=== PATIENT | female | born 1970 | race Caucasian/White ===

== ENCOUNTER 2024-02-02 09:44 | Outpatient (CLI) | payer OTHER, SELFPAY ==
--- OUTSIDE RECORDS SUMMARY | 2024-02-02 09:47 | XMS_ITS | Clinical Summary ---
Author Name Unknown Organization [facility] Address [address] [place] [id number] Care Team Providers Care Locomotive Firer/Fireman Name Role Phone Meño Solis MD Primary Care Provider [phone] Allergies Active Allergy Reactions Criticality Noted Date Comments Naproxen Hives 12/03/2019 Medications Medication Sig Dispensed Refills Start Date End Date Status lisinopril (ZESTRIL) 40 MG tablet Take 40 mg by mouth daily Active DULoxetine (CYMBALTA) 60 MG capsule Take 60 mg by mouth daily Active citalopram (CELEXA) 40 MG tablet Take 40 mg by mouth daily Active multivitamin w/minerals (MULTI-VITAMIN) tablet Take 1 tablet by mouth daily Active potassium bicarb & chloride 25 MEQ TBEF Acti ve furosemide (LASIX) 40 MG tablet Take 40 mg by mouth 2 times daily Active magnesium 250 MG tablet Take 1 tablet by mouth daily Active cyanocobalamin (VITAMIN B-12) 100 MCG tablet Take 100 mcg by mouth daily Active flurbiprofen (ANSAID) 100 MG tablet Take 100 mg by mouth 3 times daily Active diphenhydrAMINE (BENADRYL) 25 MG capsule Take 25 mg by mouth every 6 hours as needed for itching, allergies or sleep Active aspirin (ASA) 81 MG chewable tablet Take 81 mg by mouth daily Active phentermine (ADIPEX-P) 15 MG capsule Take by mouth every morning Active traMADol (ULTRAM) 50 MG tablet Take 50 mg by mouth every 6 hours as needed for severe pain Active Active Problems Problem Noted Date Diagnosed Date Encounter for post Essure sterilization check Morbid obesity 12/03/2019 Benign-appearing endometrial cells on cervical P ap smear 12/03/2019 Overview: 12/03/19 NIL pap, neg HPV. Endometrial cells present consistent with LMP. Per provider, cotest in 3 years. Social History Tobacco Use Types Packs/Day Years Used Date Smoking Tobacco: Never Smokeless Tobacco: Never Tobacco Cessation:Counseling Given: No Alcohol Use Standard Drinks/Week Comments Never 0 (1 standard drink = 0.6 oz pur e alcohol) AUDIT-C Answer Date Recorded Q1: How often do you have a drink containing alc ohol? Never 12/03/2019 Average Number of Drinks Not on file 020 Frequency of Binge Drinking Not on file 11/07 Sex and Gender Information Value Date Recorded Sex Assigned at Not on file Gender Identity Not on file Sexual Orientation Not on file Last Filed Vital Signs Vital Sign Reading Time Taken Comments Blood Pressure 124/68 12/17/2019 11:19 AM CDT Pulse - - Temperature - - Respiratory Rate - - Oxygen Saturation - - Inhaled Oxygen Concentration - - Weight 161.5 kg (356 lb) 12/17/2019 11:19 AM CDT Height 175.3 cm (5' 9) 12/17/2019 11:19 AM CDT Body Mass Index 52.57 12/17/2019 11:19 AM CDT Plan of Treatment Not on file Care Teams Locomotive Firer/Fireman Relationship Specialty Start Date End Date Meño Solis MD PCP - General pest control chemical technician 12/03/19
--- OUTSIDE RECORDS SUMMARY | 2024-02-02 09:47 | XMS_ITS | Referral Summary ---
Author Name Unknown Organization [facility] Address [address] [place] [id number] Care Team Providers Care Miniature Train Driver Name Role Phone Meño Solis MD Primary Care Provider [phone] Allergies Active Allergy Reactions Criticality Noted Date [...] of Treatment Not on file Care Teams Miniature Train Driver Relationship Specialty Start Date End Date Meño Solis MD PCP - General double ending machine operator 12/03/19
--- OUTSIDE RECORDS SUMMARY | 2024-02-02 09:47 | XMS_ITS | Clinical Summary ---
Author Name Unknown Organization [facility] Address [place], [place] [address] Care Team Providers Care Oracle Reports Developer Name Role Phone Kulwant Erazo MD Primary Care Provider + Allergies Active Allergy Reactions Criticality Noted Date Comments Naproxen Hives 07/02/2007 Medications Medication Sig Dispensed Refills Start Date End Date Status multivitamin (MVI) tablet Take 1 tablet by mouth once daily. 0 11/13/2011 Active diphenhydrAMINE (BENADRYL) 25 mg capsuleIndications: Fibromyalgia Take 1-2 capsules by mouth at bedtime if needed. 0 01/02/2016 Active acetaminophen-caffe ine-butalbital (FIORICET) 325-40-50 mg tabletIndications:M igraine with aura and without status migrainosus, not intractable TAKE ONE TABLET BY MOUTH EVERY 4 HOURS NEEDED FOR PAIN, MAX 6 DOSES PER DAY. DO NOT EXCEED 4000MG ACETAMINOPHEN/DAY 40 tablet 1 12/15/2016 Active Cholecalciferol, Vitamin D3, (VITAMIN D-3) 2,000 unit tabletIndications:R outine general medical examination at a health care facility Take 1 tablet by mouth once daily. 0 07/22/2017 Active cyanocobalamin, vitamin B-12, 500 mcg sublIndications:Rou meron general medical examination at a health care facility Place under the tongue. 0 07/22/2017 Active cetirizine (ZYRTEC) 10 mg tabletIndications:O talgia of right ear,Eustachian tube disorder, right Take 1 tablet by mouth once daily. 20 tablet 04/02/2018 Active melatonin 1 mgIndications:Essen tial hypertension Take 1 tablet by mouth at bedtime. 0 04/24/2018 Active CONTRAVE 8-90 mg Extended-Release tabletIndications:E xogenous obesity TAKE ONE TABLET BY MOUTH TWICE A DAY 60 tablet 06/09/2018 Active DULoxetine (CYMBALTA) 60 mg Delayed-release capsuleIndications: Fibromyalgia TAKE ONE CAPSULE BY MOUTH ONCE DAILY 90 capsule 2 06/08/2018 Active potassium chloride (KLOR-CON M20) 20 mEq Extended-Release tabletIndications:H ypertension TAKE ONE TABLET BY MOUTH TWO TIMES A DAY WITH MEALS 180 tablet 3 06/10/2018 Active citalopram (CELEXA) 40 mg tabletIndications:A nxiety state TAKE ONE TABLET BY MOUTH ONCE DAILY 90 tablet 08/31/2018 Active lisinopril (PRINIVIL; ZESTRIL) 40 mg tabletIndications:H ypertension TAKE ONE TABLET BY MOUTH TWO TIMES A DAY 180 tablet 11/04/2018 Active metoprolol succinate SR (TOPROL XL) 200 mg Sustained-Release tabletIndications:H ypertension TAKE ONE TABLET BY MOUTH ONCE DAILY 90 tablet 11/04/2018 Active amLODIPine (NORVASC) 5 mg tabletIndications:E ssential hypertension Take 1 tablet by mouth once daily. 90 tablet 11/16/2018 Active furosemide (LASIX) 40 mg tabletIndications:H ypertension, unspecified type Take 1 tablet by mouth 2 times daily. 180 tablet 12/06/2018 Active flurbiprofen (ANSAID) 100 mg tabletIndications:F ibromyalgia Take 1 tablet by mouth 3 times daily with meals. 90 tablet 12/06/2018 Active oxyCODONE-acetamino phen (PERCOCET) 5-325 mg per tabletIndications:C ervical radiculopathy Take 1 Tablet by mouth every 4 hours if needed for Pain. Max acetaminophen dose: 4000mg in 24 hrs. 12 Tablet 06/05/2021 Active Active Problems Problem Noted Date Diagnosed Date Vitamin D deficiency 12/02/2011 ALLERGIC RHINITIS 07/05/2007 Neurodermatitis 07/05/2007 Anxiety state, unspecified 07/05/2007 Plantar fascial fibromatosis 07/05/2007 Obesity, unspecified 07/05/2007 Resolved Problems Problem Noted Date Diagnosed Date Resolved Date Unspecified essential hypertension 07/05/2007 02/19/2017 Immunizations Name Administration Dates Next Due DTP 02/03/1973,01/09/1972,1971 ,1971 Hepatitis B (Adult) 04/30/2010,06/01/2009,2008 Influenza, IIV3 (Age >=3 years) 11/13/2011,08/06 Influenza, IIV4 07/08/2014 MMR 06/05/1990,10/28/1972 Oral Polio Vaccine 02/03/1973,01/09/1972, 972 Td (Age >=7 Years) 06/05/1990 Tdap 04/04/2021,07/02/2007 Family History Medical History Relation Name Comments Heart Disease Father [place] at age 52 Cancer-breast Maternal Aunt Good Health Mother Cancer-breast Paternal Grandmother Diabetes Paternal Grandmother Hypertension Paternal Grandmother [facility] Son 1 [facility] Son 2 [facility] Relation Name Status Comments Father Maternal Aunt Mother Alive Paternal Grandmother Son 1 Asad Son 2 [facility] Social History Tobacco Use Types Packs/Day Years Used Date Smoking Tobacco: Never Smokeless Tobacco: Never Tobacco Cessation:Counseling Given: Yes Alcohol Use Standard Drinks/Week Comments No 0 (1 standard drink = 0.6 oz pur e alcohol) rarely Sex and Gender Information Value Date Recorded Sex Assigned at Not on file Gender Identity Not on file Sexual Orientation Not on file Obstetrics History Para Term AB IAB SAB Ectopic Multiple Livin g Live Births 2 2 2 2 2 Date Outcome GA Total Labor Labor/2nd/3rd Weight Sex Delivery Anes PTL Anne Marie A1 A5 Name Cl in 10/06 34w 0d 2.15 kg (4 lb 12 oz) M Vag Dia ng Elija h [place] Delivery Location:[place] Comments:PROM 11/08 36w 0d 3.57 kg (7 lb 14 oz) M Dia ng 9 9 Israe l Howel l/[place] Delivery Location:[facility] Comments:[place] Last Filed Vital Signs Vital Sign Reading Time Taken Comments Blood Pressure 202/96 06/05/2021 1:56 PM CDT Pulse 79 06/05/2021 1:56 PM CDT Temperature 36.8 ??C (98.2 ??F) 06/05/2021 1:56 PM CD T Respiratory Rate 18 06/05/2021 1:56 PM CDT Oxygen Saturation 96% 06/05/2021 1:56 PM CDT Inhaled Oxygen Concentration - - Weight 146.5 kg (323 lb) 06/05/2021 1:56 PM CDT Height 175.3 cm (5' 9) 06/05/2021 1:56 PM CDT Body Mass Index 47.7 06/05/2021 1:56 PM CDT Plan of Treatment Health Maintenance Due Date Last Done Comments HIV for age 15-65 1986 Hepatitis C screening for age 18-79 1989 Colonoscopy through age 75 2016 Mammogram for age 45-75 2016 07/10/2007 Pap test for age 21-65 02/02/2017 4, 06/16/2008, 07/02/2007, Additional history exists Depression screening for age 12+ 07/22/2018 07/22/2017, 03/14/2016, 10/13/2015 BMI (ht and wt on same day) for age 18+ 04/24/2019 04/24/2018, 04/02/2018, 07/22/2017, Additional history exists Zoster (shingles) series for age 50+ (1 of 2) 2021 Lipids for age 45-75 04/24/2023 04/24/2018, 02/19/2017, 02/02/2014, Additional history exists COVID-19 vaccine series (2022- season) 2023 11/15/2020, 10/18/2020 Influenza for age 50-64 06/06/2024 07/08/20 14, 11/13/2011, 08/06/2010 Tetanus booster 04/04/2031 04/04/2021, 06/07, 06/05/1990 Tdap Completed 04/04/2021, 07/02/2007 Pneumococcal series for age 6-64 Aged Out No longer eligible based on patient's age to complete this topic Goals Goal Patient Goal Type Associated Problems Recent Progress Patient-Stated? Author BLOOD PRESSURE - MAINTAINS BP less than 140/90 Blood Pressure No Kulwant Erazo MD Medical Devices Implanted Type Area Roustabout Hand Device Identifier Shelf Expiration Date Model / Serial / Lot [id number] - [id number] Implanted:Qty: 1 on 10/31/2014 by Patel Gómez MD at [facility] [employer] Imp[employer]Scre[employer] [id number] T / / Description:4.5x 60mm screw metatarsal fracture screw Procedures Procedure Name Priority Date/Time Associated Diagnosis Comments LIPID PANEL W REFLEX MEASURED LDL Routine 04/24/2018 3:51 PM CDT Essential hypertension BOX LINER THIN PREP PAP SCREEN IMAGED Routine 02/02/2014 9:59 AM CDT Screening for malignant neoplasm of the cervix XR MAMMO ACS SCREENING BILATERAL (IA) Routine 07/10/2007 Screening Mammogram Other from Last 3 Months or Most Recently Relevant to Health Maintenance Results * (ABNORMAL) LIPID PANEL W REFLEX MEASURED LDL (04/24/2018 3:51 PM CDT) CHOLESTEROL,TOTAL 172 100 - 199 mg/dL 04/24/2018 4:30 PM CDT [facility] TRIGLYCERIDES 360(H) <150 mg/dL 04/24/2018 4:30 PM CDT [facility] HDL CHOLESTEROL 35(L) >40 mg/dL 8 4:30 PM CDT [facility] NON-HDL CHOLESTEROL 137 <145 mg/dl 04/24/2018 4:30 PM CDT [facility] CHOL/HDL RATIO 4.91(H) <4.50 04/24/2018 4:30 PM CDT [facility] LDL CHOLESTEROL 65 <=130 mg/dL 04/24/2018 4:30 PM CDT [facility] PROVIDER ORDERED STATUS RANDOM 04/24/2018 4:30 PM CDT [facility] Blood BLOOD SPECIMEN / Unknown Venipuncture / Unknown 04/24/2018 3:51 PM CDT 04/24/2018 3:51 PM CDT Kulwant Erazo MD CHEMISTRY Performing Organization Address [facility]/ZIP Co de Phone Number [facility] - [address] [place] [address] * BOX LINER THIN PREP PAP SCREEN IMAGED (02/02/2014 9:59 AM CDT) CYTOLOGY CYTOPATHOLOGY REPORT [facility] Status: Final Status ? CLINICAL INFORMATION Last Date of LMP ? :01/18/14 Last Pap Date ?:06/16/2008 Last Pap Result ?:NIL ABN Parthenon/Bx Past 5 YRS :None Hormone Usage ?:None Menstrual Status ? :Regular Periods Parthenon/Bx done today ? :No Additional Information :None given HPV Request ?:HPV if ASCUS SPECIMEN SOURCE ?:Cervical/vagina l ThinPrep Vial, screening SPECIMEN ADEQUACY ?:Satisfactory for evaluation Endocervical component ? present. INTERPRETATION/RES ULT Negative for intraepithelial lesion or malignancy (NIL) Cytology 1st Screener ??:gn Signed by ?:gn This specimen was screened by the FDA approved ThinPrep Imaging System and manually reviewed. NOTE: ??The Pap test is a screening technique, not a diagnostic procedure. ??It is used ??primarily to screen for squamous cancers and precursor lesions. ??Published studies have shown that it is subject to both false negative and false positive results. ??The pap test should not be used as the sole means to diagnose or exclude pre-malignant and malignant lesions. COLLECTED:02/02/14 ? ACCESSIONED: ??02/03/14 ?? SIGNED: ??02/04/14 [facility] PAP [place] CODE NIL [facility] Tissue specimen (specimen) (Cervical/Vagina l) 02/02/2014 9:59 AM CDT 02/02/2014 9:57 AM CDT Kulwant Erazo MD PATHOLOGY/CYTOLO GY [facility] INTERNAL ZIP [id number] [place] [id number] * (ABNORMAL) XR MAMMO ACS SCREENING BILATERAL (07/10/2007) Anatomical Region Laterality Modality BREASTS, Breast Left, Breast Right Bilateral Other Kulwant Erazo MD MAMMO from Last 3 Months or Most Recently Relevant to Health Maintenance Advance Directives * Full Code (Latest Code Status on File) Date Activated Date Inactivated Comments 10/31/2014 10:48 AM 10/31/2014 2:54 PM * Full Code Date Activated Date Inactivated Comments 10/31/2014 7:20 AM 10/31/2014 10:48 AM Care Teams Oracle Reports Developer Relationship Specialty Start Date End Date Kulwant Erazo MD [address] [place] [address] PCP - General Family Practice 06/05/21
== END 2024-02-02 09:45 | disposition home or self-care (01) ==
PROVIDERS: PCP Family Medicine; Visit Provider Family Medicine
DX: Z13.220 Encounter for screening for lipoid disorders (principal); I10 Essential (primary) hypertension
CPT/HCPCS: 80048; 80061

== ENCOUNTER 2025-04-15 08:37 | Outpatient (CLI) | payer OTHER, SELFPAY | END 2025-04-15 08:38 | disposition home or self-care (01) | PROVIDERS: PCP Family Medicine; Visit Provider Family Medicine | DX: I10 Essential (primary) hypertension (principal) | CPT/HCPCS: 80048; 80061; 84460 ==

== ENCOUNTER 2025-05-09 16:45 | Outpatient (CLI) | payer OTHER, SELFPAY | END 2025-05-09 16:46 | disposition home or self-care (01) | PROVIDERS: PCP Family Medicine; Visit Provider Family Medicine | DX: R53.1 Weakness (principal) | CPT/HCPCS: 80048; 82550; 83735; 84443; 85025; 85651; 86140 ==

== ENCOUNTER 2025-05-10 09:10 | Emergency (ER) | payer OTHER, SELFPAY ==
--- OUTSIDE RECORDS SUMMARY | 2025-05-10 09:12 | XMS_ITS | Clinical Summary ---
Author Organization [facility] Address [address] [place] [id number] Care Team Providers Care Distribution Systems Serviceperson Name Role Phone Kulwant Erazo MD Primary Care Provider + Allergies Active Allergy Reactions Criticality Noted Date Comments Naproxen Hives 07/02/2007 Medications multivitamin (MVI) tablet Take 1 tablet by mouth once daily. 0 11/13/19 12 Active diphenhydrAMINE (BENADRYL) 25 mg capsuleIndication s:Fibromyalgia Take 1-2 capsules by mouth at bedtime if needed. 0 01/02/20 16 Active acetaminophen-caf feine-butalbital (FIORICET) 325-40-50 mg tabletIndications :Migraine with aura and without status migrainosus, not intractable TAKE ONE TABLET BY MOUTH EVERY 4 HOURS NEEDED FOR PAIN, MAX 6 DOSES PER DAY. DO NOT EXCEED 4000MG ACETAMINOPHEN/DAY 40 tablet 1 12/16/19 17 Active Cholecalciferol, Vitamin D3, (VITAMIN D-3) 2,000 unit tabletIndications :Routine general medical examination at a health care facility Take 1 tablet by mouth once daily. 0 07/22/20 17 Active cyanocobalamin, vitamin B-12, 500 mcg sublIndications:R outine general medical examination at a health care facility Place under the tongue. 0 07/22/20 17 Active cetirizine (ZYRTEC) 10 mg tabletIndications :Otalgia of right ear,Eustachian tube disorder, right Take 1 tablet by mouth once daily. 20 tablet 04/02/20 18 Active melatonin 1 mgIndications:Ess ential hypertension Take 1 tablet by mouth at bedtime. 0 04/24/20 18 Active CONTRAVE 8-90 mg Extended-Release tabletIndications :Exogenous obesity TAKE ONE TABLET BY MOUTH TWICE A DAY 60 tablet 06/09/20 18 Active DULoxetine (CYMBALTA) 60 mg Delayed-release capsuleIndication s:Fibromyalgia TAKE ONE CAPSULE BY MOUTH ONCE DAILY 90 capsule 2 06/08/20 18 Active potassium chloride (KLOR-CON M20) 20 mEq Extended-Release tabletIndications :Hypertension TAKE ONE TABLET BY MOUTH TWO TIMES A DAY WITH MEALS 180 tablet 3 06/10/20 18 Active citalopram (CELEXA) 40 mg tabletIndications :Anxiety state TAKE ONE TABLET BY MOUTH ONCE DAILY 90 tablet 08/31/20 18 Active lisinopril (PRINIVIL; ZESTRIL) 40 mg tabletIndications :Hypertension TAKE ONE TABLET BY MOUTH TWO TIMES A DAY 180 tablet 11/04/19 19 Active metoprolol succinate SR (TOPROL XL) 200 mg Sustained-Release tabletIndications :Hypertension TAKE ONE TABLET BY MOUTH ONCE DAILY 90 tablet 11/04/19 19 Active amLODIPine (NORVASC) 5 mg tabletIndications :Essential hypertension Take 1 tablet by mouth once daily. 90 tablet 11/16/19 19 Active furosemide (LASIX) 40 mg tabletIndications :Hypertension, unspecified type Take 1 tablet by mouth 2 times daily. 180 tablet 12/07/19 19 Active flurbiprofen (ANSAID) 100 mg tabletIndications :Fibromyalgia Take 1 tablet by mouth 3 times daily with meals. 90 tablet 12/07/19 19 Active oxyCODONE-acetami nophen (PERCOCET) 5-325 mg per tabletIndications :Cervical radiculopathy Take 1 Tablet by mouth every 4 hours if needed for Pain. Max acetaminophen dose: 4000mg in 24 hrs. 12 Tablet 06/05/20 21 Active Active Problems Problem Noted Date Diagnosed Date Vitamin D deficiency 12/02/2011 ALLERGIC RHINITIS 07/05/2007 Neurodermatitis 07/05/2007 Anxiety state, unspecified 07/05/2007 Plantar fascial fibromatosis 07/05/2007 Obesity, unspecified 07/05/2007 Resolved Problems Problem Noted Date Diagnosed Date Resolved Date Unspecified essential hypertension 07/05/2007 02/19/2017 Immunizations Immunization Administration Dates Next Due DTP 02/03/1973,01/09/1972,1971 ,1971 Hepatitis B (Adult) 04/30/2010,06/01/2009,2008 Influenza, IIV3 (Age >=3 years) 11/13/2011,08/06 Influenza, IIV4 07/08/2014 MMR 06/05/1990,10/28/1972 Oral Polio Vaccine 02/03/1973,01/09/1972, 972 Td (Age >=7 Years) 06/05/1990 Tdap 04/04/2021,07/02/2007 Family History Medical History Relation Name Comments Heart Disease Father [place] at age 52 Cancer-breast Maternal Aunt Good Health Mother Cancer-breast Paternal Grandmother Diabetes Paternal Grandmother Hypertension Paternal Grandmother Good Health Son 1 Asda [facility] Son 2 [facility] Relation Name Status Comments Father Maternal Aunt Mother Alive Paternal Grandmother Son 1 Asad Son 2 [facility] Social History Tobacco Use Types Packs/Day Years Used Date Smoking Tobacco: Never Smokeless Tobacco: Never Tobacco Cessation:Counseling Given: Yes Alcohol Use Standard Drinks/Week Comments No 0 (1 standard drink = 0.6 oz pur e alcohol) rarely Comments No Sex and Gender Information Value Date Recorded Sex Assigned at Not on file Legal Sex Female 6:59 AM SILVERWARE ASSEMBLER Gender Identity Not on file Sexual Orientation Not on file 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 Comments:[place] Last Filed Vital Signs Vital Sign Reading Time Taken Comments Blood Pressure 202/96 06/05/2021 1:56 PM CDT Pulse 79 06/05/2021 1:56 PM CDT Temperature 36.8 C (98.2 F) 06/05/2021 1:56 PM CDT Respiratory Rate 18 06/05/2021 1:56 PM CDT [...] age 15-65 1986 Hepatitis C screening for ag e 18-79 1989 Colonoscopy through age 75 2016 Mammogram for age 45-75 2016 07/10/2007 Pap test for age 21-65 02/02/2017 4, 06/16/2008, 07/02/2007, Additional history exists Depression screening for age 12+ 07/22/2018 07/22/2017, 03/14/2016, 10/13/2015 BMI (ht and wt on same day) for age 18+ 04/24/2019 04/24/2018, 04/02/2018, 07/22/2017, Additional history exists Pneumococcal series for age 50+ (1 of 1 - PCV) 2021 Zoster (shingles) series for age 50+ (1 of 2) 2021 Lipids for age 45-75 04/24/2023 04/24/2018, 02/19/2017, 02/02/2014, Additional history exists COVID-19 vaccine series ( season) 2024 11/15/2020, 10/18/2020 Influenza Vaccine (#1) 2025 4, 11/13/2011, 08/06/2010 Tetanus booster 04/04/2031 04/04/2021, 06/07, 06/05/1990 Hepatitis B series for 19+ Completed 04/30, 06/01/2009, 05/01/2009 Goals Goal Patient Goal Type Associated Problems Recent Progress Patient-Stated? Author BLOOD PRESSURE - MAINTAINS BP less than 140/90 Blood Pressure No Kulwant Erazo MD Medical Devices Implanted Type Area Remote Sensing Research Scientist Device Identifier Shelf Expiration Date Model / Serial / Lot [id number] - [id number] Implanted:Qty: 1 on 10/31/2014 by Patel Gómez MD at [facility] Orth[facility] Imp.,Screws [employer]ates [employer] [id number] T / / Description:4.5x 60mm screw metatarsal fracture screw Procedures Procedure Name Priority Date/Time Associated Diagnosis Comments LIPID PANEL W REFLEX MEASURED LDL Routine 04/24/2018 3:51 PM CDT Essential hypertension ADMINISTRATIVE MANAGER THIN PREP PAP SCREEN IMAGED Routine 02/02/2014 9:59 AM CDT Screening for malignant neoplasm of the cervix XR MAMMO ACS SCREENING BILATERAL (IA) Routine 07/10/2007 Screening Mammogram Other from Last 3 Months or Most Recently Relevant to Health Maintenance Results * (ABNORMAL) LIPID PANEL W REFLEX MEASURED LDL (04/24/2018 3:51 PM CDT) CHOLESTEROL,TOTAL 172 100 - 199 mg/dL 04/24/2018 4:30 PM CDT [facility] TRIGLYCERIDES 360(H) <150 mg/dL 04/24/2018 4:30 PM CDT [facility] HDL CHOLESTEROL 35(L) >40 mg/dL 8 4:30 PM CDT [facility] NON-HDL CHOLESTEROL 137 <145 mg/dl 04/24/2018 4:30 PM CDT [facility] CHOL/HDL RATIO 4.91(H) <4.50 04/24/2018 4:30 PM CDT [facility] LDL CHOLESTEROL 65 <=130 mg/dL 04/24/2018 4:30 PM CDT [facility] PROVIDER ORDERED STATUS RANDOM 04/24/2018 4:30 PM CDT [facility] Blood BLOOD SPECIMEN / Unknown Venipuncture / Unknown 04/24/2018 3:51 PM CDT 04/24/2018 3:51 PM CDT Kulwant Erazo MD CHEMISTRY Final Re sult [address] [id number] * ADMINISTRATIVE MANAGER THIN PREP PAP SCREEN IMAGED (02/02/2014 9:59 AM CDT) CYTOLOGY CYTOPATHOLOGY REPORT [facility] Status: Final Status [id number] CLINICAL INFORMATION Last Date of LMP :01/18/14 Last Pap Date :06/16/2008 Last Pap Result :NIL ABN Arverne/Bx Past 5 YRS :None Hormone Usage :None Menstrual Status :Regular Periods Arverne/Bx done today :No Additional Information :None given HPV Request :HPV if ASCUS SPECIMEN SOURCE :Cervical/vaginal ThinPrep Vial, screening SPECIMEN ADEQUACY :Satisfactory for evaluation Endocervical component present. INTERPRETATION/RES ULT Negative for intraepithelial lesion or malignancy (NIL) Cytology 1st Screener :gn Signed by :gn This specimen was screened by the FDA approved ThinPrep Imaging System and manually reviewed. NOTE: The Pap test is a screening technique, not a diagnostic procedure. It is used primarily to screen for squamous cancers and precursor lesions. Published studies have shown that it is subject to both false negative and false positive results. The pap test should not be used as the sole means to diagnose or exclude pre-malignant and malignant lesions. COLLECTED:02/02/14 ACCESSIONED: 02/03/14 SIGNED: 02/04/14 [facility] PAP [place] CODE NIL [facility] Tissue specimen (specimen) (Cervical/Vagina l) 02/02/2014 9:59 AM CDT 02/02/2014 9:57 AM CDT us Kulwant Erazo MD PATHOLOGY/CYTOLOGY Final Result [facility] [place] ZIP [id number] [place] [id number] * (ABNORMAL) XR MAMMO ACS SCREENING BILATERAL (07/10/2007) Anatomical Region Laterality Modality BREASTS, Breast Left, Breast Right Bilateral Other us Kulwant Erazo MD MAMMO Edited from Last 3 Months or Most Recently Relevant to Health Maintenance Insurance [employer] [facility] myTips [facility] Advance Directives * Full Code (Latest Code Status on File) Date Activated Date Inactivated Comments 10/31/2014 10:48 AM 10/31/2014 2:54 PM * Full Code Date Activated Date Inactivated Comments 10/31/2014 7:20 AM 10/31/2014 10:48 AM Care Teams Distribution Systems Serviceperson Relationship Specialty Start Date End Date Kulwant Erazo MD [address] [place] [id number] PCP - General Family Practice 06/05/21
--- OUTSIDE RECORDS SUMMARY | 2025-05-10 09:12 | XMS_ITS | Clinical Summary ---
Author Organization [facility] Address [address] [place] [id number] Care Team Providers Care Surgical Dressing Maker Name Role Phone Meño Solis MD Primary Care Provider [phone] Allergies Active Allergy Reactions Criticality Noted Date Comments Naproxen Hives 12/03/2019 Medications lisinopril (ZESTRIL) 40 MG tablet Take 40 mg by mouth daily Active DULoxetine (CYMBALTA) 60 MG capsule Take 60 mg by mouth daily Active citalopram (CELEXA) 40 MG tablet Take 40 mg by mouth daily Active multivitamin w/minerals (MULTI-VITAMIN) tablet Take 1 tablet by mouth daily Active potassium bicarb & chloride 25 MEQ TBEF Active furosemide (LASIX) 40 MG tablet Take 40 [...] cells on cervical P ap smear 12/03/2019 Overview (12/10/2019): 12/03/19 NIL pap, neg HPV. 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
[2025-05-10 09:20] VITALS: BP 169/105; PULSE 72; RESP 18; TEMP 36.4; O2SAT 95; BMI 48.6
--- NOTE | 2025-05-10 09:41 | CRLHL7_ITS ---
For Patients: As a result of the Century Cures Act, medical imaging exams and procedure reports are released immediately into your electronic medical record. You may view this report before your referring provider. If you have questions, please contact your health care provider. Indication: Left low back pain and right leg weakness Technique: Multiplanar, multisequence, MRI of the lumbar spine, obtained without contrast. Comparison: None Findings: Preserved lumbar lordosis. Trace anterolisthesis at L5-S1. No acute osseous abnormality. Degenerative Schmorl`s nodes and Modic type 1 opposing endplate changes at L2-3. Modic type 2 changes ventrally at L1-2. Additional small degenerative Schmorl`s node at the L4 inferior endplate. No acute osseous abnormality or suspicious bone marrow lesion. Conus medullaris terminates at L1. Unremarkable included SI joints. T12-L1: No significant neural foraminal or spinal canal stenosis. L1-L2: Diffuse right eccentric disc bulge. No neural foraminal or spinal canal stenosis. L2-L3: Diffuse disc bulge. Mild bilateral neural foraminal narrowing. Mild spinal canal and left lateral recess narrowing. L3-L4: Diffuse disc bulge. Mild left, mild-moderate right neural foraminal narrowing. No spinal canal stenosis. L4-L5: Mild disc bulge, facet arthropathy. Moderate bilateral neural foraminal stenosis. No spinal canal stenosis. L5-S1: Disc unroofing/bulge, facet arthropathy. Moderate bilateral neural foraminal stenosis. No spinal canal stenosis. Impression: 1. Lumbar spondylosis with trace degenerative spondylolisthesis and Modic endplate changes as detailed. 2. At L2-L3, mild bilateral neural foraminal narrowing, with mild spinal canal and left lateral recess narrowing. 3. At L3-L4, mild-moderate right and mild left neural foraminal narrowing. 4. At L4-L5, moderate bilateral neural foraminal stenosis. 5. At L5-S1, moderate bilateral neural foraminal stenosis. Dictated by Donna Blackmon MD @ 05/10/2025 11:05:23 AM (Electronically Signed)
--- NOTE | 2025-05-10 10:19 | ED.GENADULT ---
HPI - General Adult General Date Seen: 05/10/25 Chief complaint: Fall/Minor Trauma Stated complaint: MRI- lower back and left hip sent by her doctor Time Seen by Provider: 05/10/25 09:25 Source: patient and other (PCP) Mode of arrival: ambulatory Limitations: no limitations History of Present Illness HPI narrative: Patient is a 54-year-old female presenting to Emergency Department by request of her primary care provider to get MRI due to back pain and leg weakness. I did speak to her primary care provider previously and was aware the patient was coming in. The patient states she fell about 6 weeks ago when she lost her balance while gardening. She landed on her back id be a pain that but was feeling better over the past few weeks. States he landed on his buttocks. She states on Friday she was having some weakness and difficulty getting all the bathtub due to weakness in her leg. She did not have any pain at this time. Then Friday night when she was walking she feels the leg gave out on her. States that the right leg that feels weak. She had difficulty getting up at that time a when she was able to get to an office chair to help herself up. She states she would not episode where her right leg gave out on her yesterday in she fell again. Since then has had a few other occurrences for she feels like her right leg is weak. Does have some difficulty getting out of chairs at this time due to the weakness. Also has difficulty going up steps. Has never had symptoms like this before. Does complain about some mild left low back pain. She denies fevers, chills, chest pain, shortness of breath, abdominal pain, numbness, saddle anesthesia, urinary incontinence or retention, bowel incontinence. Denies any history of IV drug abuse. No other concerns at this time. States she was told to come in by her primary care provider. Her primary care provider center and as he did believe she needed an MRI but long wait to get 1 sooner than 2 weeks out was to send her to the emergency department Related Data Home Medications ?Medication ?Instructions ?Recorded ?Confirmed multivitamin 1 tab PO QDAY 08/14/22 05/09/25 cholecalciferol (vitamin D3) 50 100 mcg PO QDAY 03/07/23 05/09/25 mcg (2,000 unit) capsule (Vitamin D3) magnesium PO 03/07/23 05/09/25 aspirin 81 mg tablet,delayed 81 mg PO QDAY 02/02/24 05/09/25 release (Adult Aspirin Regimen) thiamine HCl (vitamin B1) 100 mg 100 mg PO QDAY 04/15/25 05/09/25 capsule Previous Rx's ?Medication ?Instructions ?Recorded amlodipine 5 mg tablet 5 mg PO DAILY #90 tabs 04/15/25 duloxetine 30 mg capsule,delayed 30 mg PO DAILY #90 caps 04/15/25 release duloxetine 60 mg capsule,delayed 60 mg PO DAILY #90 caps 04/15/25 release escitalopram oxalate 20 mg tablet 20 mg PO QDAY #90 tabs 04/15/25 (Lexapro) flurbiprofen 100 mg tablet 100 mg PO TID #270 tabs 04/15/25 fluticasone propionate 50 1 spray intranasal QDAY #16 grams 04/15/25 mcg/actuation nasal spray,suspension (Flonase Allergy Relief) furosemide 40 mg tablet 40 mg PO BID #180 tabs 04/15/25 lisinopril 40 mg tablet 40 mg PO BID #180 tabs 04/15/25 metoprolol succinate 200 mg 200 mg PO DAILY #90 tabs 04/15/25 tablet,extended release 24 hr potassium chloride 20 mEq 20 meq PO BID #180 tabs 04/15/25 tablet,extended release(part/cryst) tramadol 50 mg tablet 50 mg PO Q6H PRN pain #60 tabs 04/15/25 zolpidem 5 mg tablet (Ambien) 5 mg PO QHS #30 tabs 04/15/25 phentermine 37.5 mg tablet 37.5 mg PO QDAY #30 tabs 04/21/25 Allergies Allergy/AdvReac Type Severity Reaction Status Date / Time naproxen Allergy Intermediate Hives Verified 05/10/25 09:20 Review of Systems Status of ROS: Reports: 10 or more systems reviewed and unremarkable except as noted in History and below [facility] Medical History Primary hypertension ?I10 - Essential (primary) hypertension (ICD-10) Vitamin D deficiency (12/02/11) ?E55.9 - Vitamin D deficiency, unspecified (ICD-10) Neurodermatitis (07/05/07) ?L28.0 - Lichen simplex chronicus (ICD-10) Morbid obesity with body mass index (BMI) of 45.0 to 49.9 in adult ?E66.01 - Morbid (severe) obesity due to excess calories (ICD-10) ?Z68.42 - Body mass index [BMI] 45.0-49.9, adult (ICD-10) Major depressive disorder in partial remission ?F32.4 - Major depressive disorder, single episode, in partial remission (ICD-10) History of migraine ?Z86.69 - Personal history of other diseases of the nervous system and sense organs (ICD-10) Fibromyalgia ?M79.7 - Fibromyalgia (ICD-10) Degeneration of intervertebral disc of lumbar region ?M51.36 - Other intervertebral disc degeneration, lumbar region (ICD-10) Allergic rhinitis ?J30.9 - Allergic rhinitis, unspecified (ICD-10) Chronic low back pain ?M54.50 - Low back pain, unspecified (ICD-10) ?G89.29 - Other chronic pain (ICD-10) Generalized anxiety disorder ?F41.1 - Generalized anxiety disorder (ICD-10) Surgical History History of tonsillectomy ?Z90.89 - Acquired absence of other organs (ICD-10) History of shoulder surgery ?Z98.890 - Other specified postprocedural states (ICD-10) History of section ?Z98.891 - History of uterine scar from previous surgery (ICD-10) Family History Other Breast cancer Heart disease Stroke Type 2 diabetes mellitus Social History Narrative: , 2 sons, RN, non-smoker, no EtOH What is your current living situation?: I presently have a place to live Problems where you live: no known problems In the past 12 months, utilities in danger of being shut off: no In past 12 months, lack of transportation kept you from medical appts, meetings, work, or getting things needed for daily living: no In the past 12 mos, have been you worried that your food would run out before you had money to buy more?: never true In the past 12 mos, the food you bought just didn't last and you didn't have money to buy more?: never true Smoking Status: Never smoker How often do you have a drink containing alcohol: never AUDIT-C Alcohol total score: 0 Non-prescribed substance use: denies use How often does anyone, including family, friends and others, physically hurt you: never How often does anyone, including family, friends and others, insult or talk down to you: never How often does anyone, including family, friends and others, threaten you with harm: never How often does anyone, including family, friends and others, scream or curse at you: never Exam Narrative: Exam Narrative: Const: Well-nourished, Well-developed, in mild distress Eyes: PERRL, no conjunctival injection, and symmetrical lids HENT: Atraumatic external nose and ears. Moist mucous membranes. Neck: Symmetric, trachea midline, No thyromegaly. CVS: RRR, No murmurs or gallops. Peripheral pulses 2+ and equal in all extremities RESP: Unlabored respiratory effort. Clear to auscultation bilaterally. GI: Nontender/Nondistended, No rebound or guarding. MSK:Extremities w/o deformity, Normal Active ROM Skin: Warm, Dry. No rashes or lesions. Neuro: Normal Muscle tone, No focal neurological deficits. Psych: Awake, Alert, & Oriented x3. Appropriate mood and affect. Const: Vital Signs, click to edit/add: Vital Signs - 24 hr 05/10/25 09:20 05/10/25 10:29 Temperature 97.5 F L Pulse Rate [Pulse Oximeter] 72 79 Respiratory Rate 18 18 Blood Pressure [Ri ght Upper Arm] 169/105 H 150/71 H Pulse Oximetry 95 94 Oxygen Delivery Me thod Room Air Room Air Course Vital Signs Vital signs: Initial Vital Signs Temperature 97.5 F L 05/10/25 09:20 Temperature Source Temporal Artery Scan 05/10/25 09:20 Pulse Rate 72 05/10/25 09:20 Respiratory Rate 18 05/10/25 09:20 Blood Pressure 169/105 H 05/10/25 09:20 Blood Pressure Mean 126 H 05/10/25 09:20 Pulse Oximetry 95 05/10/25 09:20 Oxygen Delivery Method Room Air 05/10/25 09:20 Vital Signs Temperature 97.5 F L 05/10/25 09:20 Pulse Rate 72 05/10/25 09:20 Respiratory Rate 18 05/10/25 09:20 Blood Pressure 169/105 H 05/10/25 09:20 Pulse Oximetry 95 05/10/25 09:20 Oxygen Delivery Method Room Air 05/10/25 09:20 Temperature 97.5 F L 05/10/25 09:20 Pulse Rate 79 05/10/25 10:29 Respiratory Rate 18 05/10/25 10:29 Blood Pressure 150/71 H 05/10/25 10:29 Pulse Oximetry 94 05/10/25 10:29 Oxygen Delivery Method Room Air 05/10/25 10:29 Medical Decision Making MDM Narrative Medical decision making narrative: Patient is a 54-year-old female presenting to the emergency department for right leg weakness and back pain. Is not having any red flag symptoms. MRI was ordered of the lumbar spine. MRI returned showing mild to moderate foraminal stenosis but no concerning abnormalities that need immediate intervention. I spoke to her primary care provider who was aware and they will follow up with her. She is safe for discharge Imaging Data MR lumbar spine: Attestation: I have reviewed the pertinent imaging results. Radiologist's impression: 1. Lumbar spondylosis with trace degenerative spondylolisthesis and Modic endplate changes as detailed. 2. At L2-L3, mild bilateral neural foraminal narrowing, with mild spinal canal and left lateral recess narrowing. 3. At L3-L4, mild-moderate right and mild left neural foraminal narrowing. 4. At L4-L5, moderate bilateral neural foraminal stenosis. 5. At L5-S1, moderate bilateral neural foraminal stenosis. Dictated by Donna Blackmon MD @ 05/10/2025 11:05:23 AM Discharge Plan Discharge Clinical Impression: Right leg weakness Chronic low back pain Qualifiers: Back pain laterality: left Sciatica presence: unspecified whether sciatica present Qualified Code(s): M54.50 - Low back pain, unspecified Patient Disposition: Home, Self-Care Condition: Stable Additional Instructions: I spoke to your primary care provider. They will call you to find set physical therapy and possibly a nerve study. If you do not hear from them by tomorrow afternoon call their office for an appointment Prescriptions: No Action magnesium PO cholecalciferol (vitamin D3) [Vitamin D3] 50 mcg (2,000 unit) capsule 100 mcg PO QDAY aspirin [Adult Aspirin Regimen] 81 mg tablet,delayed release (DR/EC) 81 mg PO QDAY thiamine HCl (vitamin B1) 100 mg capsule 100 mg PO QDAY amlodipine 5 mg tablet 5 mg PO DAILY Qty: 90 3RF duloxetine 30 mg capsule,delayed release(DR/EC) 30 mg PO DAILY Qty: 90 3RF duloxetine 60 mg capsule,delayed release(DR/EC) 60 mg PO DAILY Qty: 90 3RF escitalopram oxalate [Lexapro] 20 mg tablet 20 mg PO QDAY Qty: 90 3RF flurbiprofen 100 mg tablet 100 mg PO TID Qty: 270 3RF furosemide 40 mg tablet 40 mg PO BID Qty: 180 3RF lisinopril 40 mg tablet 40 mg PO BID Qty: 180 3RF metoprolol succinate 200 mg tablet extended release 24 hr 200 mg PO DAILY Qty: 90 3RF tramadol 50 mg tablet 50 mg PO Q6H PRN (Reason: pain) Qty: 60 5RF potassium chloride 20 mEq tablet,ER particles/crystals 20 meq PO BID Qty: 180 3RF fluticasone propionate [Flonase Allergy Relief] 50 mcg/actuation spray,suspension 1 spray intranasal QDAY Qty: 16 5RF Rx Instructions: administer into each nostril zolpidem [Ambien] 5 mg tablet 5 mg PO QHS Qty: 30 1RF multivitamin Tablet 1 tab PO QDAY phentermine 37.5 mg tablet 37.5 mg PO QDAY Qty: 30 2RF Rx Instructions: must administer 30 minutes before or 1-2 hours after breakfast Follow Up/Referrals: Kulwant Erazo MD [Primary Care Provider, Family Practice] Stand Alone Forms: [facility] Info Instructions
[2025-05-10 10:29] VITALS: BP 150/71; PULSE 79; RESP 18; O2SAT 94
== END 2025-05-10 11:33 | disposition home or self-care (01) ==
PROVIDERS: Emergency Provider Student in an Organized Health Care Education/Training Program; PCP Family Medicine
DX: M54.50 Low back pain, unspecified (principal); W19.XXXA Unspecified fall, initial encounter
CPT/HCPCS: 72148; 99283

== ENCOUNTER 2025-08-19 09:17 | Outpatient (CLI) | payer OTHER, SELFPAY ==
--- NOTE | 2025-08-19 09:15 | CRLHL7_ITS ---
For Patients: As a result of the Century Cures Act, medical imaging exams and procedure reports are released immediately into your electronic medical record. You may view this report before your referring provider. If you have questions, please contact your health care provider. INDICATION: BILATERAL SCREENING MAMMOGRAM, ASYMPTOMATIC 54 Y/O FEMALE COMPARISON: 03/15/2022, 12/17/2019, 07/30/2017 TECHNIQUE: Digital mammogram in CC and MLO projections including computer-aided detection (CAD) and tomosynthesis. BREAST COMPOSITION: The breasts are almost entirely fatty. FINDINGS: No suspicious findings. ASSESSMENT: BI-RADS 2 Benign RECOMMENDATION: Annual screening mammogram. A lay language report of this examination will be provided to the patient. Dictated by: Kulwant Mckeon MD @ 08/19/2025 11:22:36 (Electronically Signed)
== END 2025-08-19 09:18 | disposition home or self-care (01) ==
LOC: MAMMO 09:18
PROVIDERS: PCP Family Medicine; Visit Provider Family Medicine
DX: Z12.31 Encounter for screening mammogram for malignant neoplasm of breast (principal)
CPT/HCPCS: 77063; 77067